=== PATIENT | female | born 1975 | race African-American/Black ===

== ENCOUNTER 2016-07-11 | Emergency (ER) | payer OTHER | END 2016-07-11 16:16 | disposition left against medical advice (07) | DX: Z53.21 Procedure and treatment not carried out due to patient leaving prior to being seen by health care provider (principal) ==

== ENCOUNTER 2016-07-28 13:56 | Emergency (ER) | payer OTHER | END 2016-07-28 16:17 | disposition home or self-care (01) | DX: R55 Syncope and collapse (principal); M79.1 Myalgia ==

== ENCOUNTER 2016-08-15 11:18 | Emergency (ER) | payer OTHER ==
[2016-08-15] MEDS ORDERED: SODIUM CHLORIDE 0.9% 1,000 ML IV ONE (11:34)
[2016-08-15] MEDS ORDERED: ONDANSETRON 4 MG/2 ML VIAL IVP STA (12:18)
[2016-08-15] MEDS ORDERED: ONDANSETRON 4 MG/2 ML VIAL ONE (12:20)
[2016-08-15] MEDS ORDERED: POTASSIUM CHLORIDE 20 MEQ TABLET PO STA (14:02)
[2016-08-15] MEDS ORDERED: POTASSIUM CHLORIDE 20 MEQ TABLET PO ONE (14:09)
== END 2016-08-15 16:52 | disposition home or self-care (01) ==
DX: R55 Syncope and collapse (principal); E87.6 Hypokalemia; R11.2 Nausea with vomiting, unspecified
CPT/HCPCS: 36415; 70450; 80053; 81003; 83690; 83735; 84132; 85025; 93005; 93010; 96374; 99284; A9270

== ENCOUNTER 2016-11-10 17:26 | Outpatient (CLI) | payer OTHER | END 2016-11-10 17:27 | disposition critical access hospital (66) | LOC: EMS 17:26 | PROVIDERS: ATTEND Surgery | DX: R42 Dizziness and giddiness (principal); R11.0 Nausea; R10.9 Unspecified abdominal pain | CPT/HCPCS: A0425; A0427 ==

== ENCOUNTER 2016-11-10 17:47 | Emergency (ER) | payer OTHER ==
[2016-11-10 18:28] LABS: BASOPHILS % (AUTO) 0.8 %; EOSINOPHILS % (AUTO) 0.7 %; HCT - HEMATOCRIT 35.7 % (37.0-47.0); HGB - HEMOGLOBIN 11.5 g/dL (12.0-16.0); LYMPHOCYTES # (AUTO) 1.7 10^3/uL (1.5-3.5); MEAN CORPUSCULAR HEMOGLOBIN 27.2 pg (27.0-31.0); MEAN CORPUSCULAR HGB CONC 32.1 g/dL (32.0-36.0); MEAN CORPUSCULAR VOLUME 84.7 fL (81.0-99.0); MEAN PLATELET VOLUME 8.3 fL (7.9-10.8); MONOCYTES # (AUTO) 0.3 10^3/uL (0.0-1.0); MONOCYTES % (AUTO) 6.1 %; NEUTROPHILS # (AUTO) 3.2 10^3/uL (1.5-6.6); NEUTROPHILS % (AUTO) 60.4 %; NUCLEATED RED BLOOD CELLS AUTO 0.2 /100WBC; RED BLOOD COUNT 4.21 10^6/uL (4.20-5.40); RED CELL DISTRIBUTION WIDTH 14.5 % (12.0-15.0); UNCORRECTED WHITE BLOOD COUNT 5.2 x10^3/uL; WHITE BLOOD COUNT 5.2 x10^3/uL (4.8-10.8)
[2016-11-10 18:33] LABS: ALBUMIN/GLOBULIN RATIO 1.3 (1.0-2.2); BILIRUBIN,TOTAL 0.4 mg/dL (0.2-1.0); CALCIUM 9.3 mg/dL (8.5-10.3); CREATININE 0.8 mg/dL (0.4-1.0); POTASSIUM 3.3 mmol/L (3.5-5.0); TOTAL PROTEIN 7.3 g/dL (6.7-8.2)
[2016-11-10 18:41] LABS: BILIRUBIN,URINE NEGATIVE (NEGATIVE)
[2016-11-10 18:50] LABS: HCG UR QUAL NEGATIVE; UA CHARGE (STRIP ONLY) YES; UR CULTURE IF IND NOT INDICATED
[2016-11-10] MEDS ORDERED: MECLIZINE 12.5 MG TABLET PO STA ×2 (19:42→20:33)
[2016-11-10] MEDS ORDERED: MECLIZINE 12.5 MG TABLET PO ONE ×2 (19:45→20:42)
[2016-11-10] MEDS ORDERED: SODIUM CHLORIDE 0.9% 1,000 ML IV ONE (19:45)
--- NOTE | 2016-11-10 19:47 | ED Physician Documentation ---
History of Present Illness - Stated complaint Stated Complaint: ABD PX - Chief complaint Chief Complaint: Abd Pain - History obtained from History obtained from: Patient - History of Present Illness Timing: Today (41-year-old woman developed a spinning type dizziness at 1 o' clock today while reaching for something. She had this once before and was attributed to hypokalemia. She denies any significant headache. She was nauseous but now feels somewhat better after Zofran en route. She denies any weakness, numbness, tingling of the extremities or weakness anywhere. 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) - Past Surgical History Past Surgical History: Yes /DIETARY CLERK: section - Present Medications Home Medications: Ambulatory Orders Medication Instructions Recorded Confirmed Pnv Cmb#21/Iron/Folic Acid 1 tab PO DAILY 09/23/14 11/10/16 [ Complete Caplet] Meclizine [Antivert] 25 mg PO Q6H PRN #20 tablet 11/10/16 Ondansetron HCl [Zofran] 4 mg PO Q6H PRN #10 tablet 11/10/16 - Allergies Allergies/Adverse Reactions: Allergies Allergy/AdvReac Type Severity Reaction Status Date / Time tramadol AdvReac Dizziness Verified 07/28/16 14:03 - Social History Does the pt smoke?: No Smoking Status: Never smoker Does the pt drink ETOH?: Yes Does the pt have substance abuse?: No - Immunizations Immunizations are current?: Yes - POLST Patient has POLST: No PD ED PE NORMAL - Vitals Vital signs reviewed: Yes - General General: Alert and oriented X 3, No acute distress - HEENT HEENT: PERRL, EOMI, Other (She appears dizzy, she's keeping her eyes closed, however she says she's already somewhat better. I don't appreciate nystagmus. However she does say she gets dizzier when she turns her head suddenly to the left.) - Neck Neck: Supple, no meningeal sign, No bony TTP - Cardiac Cardiac: RRR, No murmur - Respiratory Respiratory: No respiratory distress, Clear bilaterally - Abdomen Abdomen: Non tender - Neuro Neuro: Alert and oriented X 3, trash man 2-12 intact, No motor deficit, No sensory deficit, Normal speech, Other (NIH stroke scale 0) - Psych Psych: Normal mood, Normal affect Results - Vitals Vitals: Vital Signs - 24 hr 11/10/16 11/10/16 11/10/16 17:55 18:33 19:52 Temperature 36.5 C Heart Rate 79 69 80 Respiratory 18 18 15 Rate Blood Pressure 120/71 125/75 134/95 H O2 Saturation 100 99 98 11/10/16 20:32 Temperature Heart Rate 71 Respiratory 18 Rate Blood Pressure 114/92 H O2 Saturation 98 Oxygen O2 Source Room air - Labs Labs: Laboratory Tests 11/10/16 11/10/16 11/10/16 17:53 17:53 18:25 WBC 5.2 RBC 4.21 Hgb 11.5 L Hct 35.7 L MCV 84.7 MCH 27.2 MCHC 32.1 RDW 14.5 Plt Count 242 MPV 8.3 Neut # 3.2 Lymph # 1.7 [place] # 0.3 Eos # 0.0 Baso # 0.0 Absolute Nucleated RBC 0.01 Nucleated RBCs 0.2 Sodium 143 Potassium 3.3 L Chloride 110 Carbon Dioxide 26 Anion Gap 7.0 BUN 11 Creatinine 0.8 Estimated GFR (MDRD) 95 Glucose 109 H Calcium 9.3 Total Bilirubin 0.4 AST 16 ALT 17 Alkaline Phosphatase 40 L Total Protein 7.3 Albumin 4.1 Globulin 3.2 Albumin/Globulin Ratio 1.3 Lipase 21 L Urine Color YELLOW Urine Clarity CLEAR Urine pH 6.0 Ur Specific [place] 1.015 Urine Protein NEGATIVE Urine Glucose (UA) NEGATIVE Urine Ketones TRACE Urine Occult Blood NEGATIVE Urine Nitrite NEGATIVE Urine Bilirubin NEGATIVE Urine Urobilinogen 0.2 (NORMAL) Ur Leukocyte Esterase NEGATIVE Ur Microscopic Review NOT INDICATED Urine Culture Comments NOT INDICATED Urine HCG, Qual NEGATIVE PD MEDICAL DECISION MAKING - ED course ED course: 41-year-old woman presents with resolving vertigo that sounds peripheral by history. There are no physical findings. CVA is considered but she has a negative stroke scale and again there are historical factors that are very consistent with peripheral vertigo. Feeling better after the administration of meclizine and IV fluids here. Ambulated in the bell without issue. Departure - Departure Disposition: 01 Home, Self Care Clinical Impression: Peripheral vertigo Qualifiers: Laterality: unspecified laterality Qualified Code(s): H81.399 - Other peripheral vertigo, unspecified ear Condition: Good Record reviewed to determine appropriate education?: Yes Instructions: ED Vertigo Unspecified Prescriptions: Meclizine [Antivert] 25 mg PO Q6H PRN #20 tablet PRN Reason: Dizziness Ondansetron HCl [Zofran] 4 mg PO Q6H PRN #10 tablet PRN Reason: Nausea / Vomiting Comments: Call your doctor to arrange a follow up appointment. Make the next available appointment. In the interim return anytime if worse or if new symptoms develop. Your blood pressure was elevated today on check in to the emergency department. This does not mean that you have hypertension, it is a common phenomenon to check into the emergency department and have elevated blood pressure. I recommend that you see your primary care physician within the week to have it rechecked when you're feeling better. Forms: Activity restrictions
[2016-11-10 20:33] VITALS: BP 114/92
[2016-11-10] MEDS ORDERED: ONDANSETRON ODT 4 MG Prepack 2 TL STA (20:33)
[2016-11-10] MEDS ORDERED: ONDANSETRON ODT 4 MG Prepack 2 TL ONE (20:42)
== END 2016-11-10 20:50 | disposition home or self-care (01) ==
LOC: EDUNIT# → ED 17:47
DX: H81.399 Other peripheral vertigo, unspecified ear (principal); R11.0 Nausea; R03.0 Elevated blood-pressure reading, without diagnosis of hypertension
CPT/HCPCS: 36415; 80053; 81003; 81025; 83690; 85025; 96360; 99284; A9270; 81001; 87086